=== PATIENT | male | born 1955 | race Caucasian/White ===

== ENCOUNTER 2019-05-11 21:20 | Emergency (ER) | payer MEDICARE, MEDICAID ==
[~2019-05-11] VITALS: Ht 172.7 cm; Wt 63.6 kg
[~2019-05-11 21:20] MED LIST: ASPI-611 PO; LISI40TA4 PO; METO25TA6 PO; OMEP-50 PO
[2019-05-11] MEDS ORDERED: LIDOcaine 1% w/EPI 1:200,000 injection 10mL vial IM ONE (22:05)
[2019-05-11] MEDS ORDERED: TETanus/Pertussis (Acell)/Diphther VAC/PF (Tdap-Adult) 0.5ml syringe IM ONE (22:05)
[2019-05-11] MEDS ORDERED: LIDOcaine 1% W/epiNEPHrine 1:100,000 20ml vial IJ ONE (22:25)
[2019-05-11] MEDS ORDERED: L. R1CAP4 PO (22:37)
[2019-05-11] MEDS ORDERED: CEPH500C5 PO (22:37)
[2019-05-11] MEDS ORDERED: SULF1TAB49 PO (22:37)
[2019-05-11 23:00] VITALS: BP 148/77
== END 2019-05-11 23:01 | disposition home or self-care (01) ==
LOC: ER 21:20
DX: L02.412 Cutaneous abscess of left axilla (principal); I11.0 Hypertensive heart disease with heart failure; I50.9 Heart failure, unspecified; I25.10 Atherosclerotic heart disease of native coronary artery without angina pectoris; J44.9 Chronic obstructive pulmonary disease, unspecified; K21.9 Gastro-esophageal reflux disease without esophagitis; E11.9 Type 2 diabetes mellitus without complications; F12.90 Cannabis use, unspecified, uncomplicated; F15.90 Other stimulant use, unspecified, uncomplicated; Z95.1 Presence of aortocoronary bypass graft; Z98.890 Other specified postprocedural states; Z79.82 Long term (current) use of aspirin; Z79.899 Other long term (current) drug therapy
CPT/HCPCS: 10060; 87070; 87077; 87186; 90471; 99283

== ENCOUNTER 2019-12-20 10:58 | Emergency (ER) | payer MEDICARE, MEDICAID ==
[~2019-12-20] VITALS: Ht 172.7 cm; Wt 63.6 kg
[~2019-12-20 10:58] MED LIST changes: +L. R1CAP4 PO
[2019-12-20] MEDS ORDERED: proparacaine 0.5% ophthalmic drops 15ml EACHEYE ONE (11:05)
[2019-12-20] MEDS ORDERED: ciprofloxacin 0.3% 2.5ml ophthalmic solution RIGHTEYE ONE (11:25)
[2019-12-20 11:58] VITALS: BP 170/113
== END 2019-12-20 11:50 | disposition home or self-care (01) ==
LOC: ER 10:59
DX: T15.01XA Foreign body in cornea, right eye, initial encounter (principal); H57.11 Ocular pain, right eye; I25.10 Atherosclerotic heart disease of native coronary artery without angina pectoris; I11.0 Hypertensive heart disease with heart failure; I50.9 Heart failure, unspecified; J44.9 Chronic obstructive pulmonary disease, unspecified; K21.9 Gastro-esophageal reflux disease without esophagitis; F12.90 Cannabis use, unspecified, uncomplicated; F15.90 Other stimulant use, unspecified, uncomplicated; Z86.19 Personal history of other infectious and parasitic diseases; Z98.890 Other specified postprocedural states; Z72.89 Other problems related to lifestyle; Z60.2 Problems related to living alone; Z79.82 Long term (current) use of aspirin; Z79.4 Long term (current) use of insulin; Z79.899 Other long term (current) drug therapy; X58.XXXA Exposure to other specified factors, initial encounter; Y93.89 Activity, other specified; Y92.89 Other specified places as the place of occurrence of the external cause; Y99.8 Other external cause status
CPT/HCPCS: 65222; 99284

== ENCOUNTER → 2021-06-15 | Emergency (ER) | payer MEDICARE, MEDICAID ==
[~2021-06-15] VITALS: Ht 172.7 cm; Wt 63.0 kg
[~2021-06-15] MED LIST changes: +LISI40TA13 PO; -LISI40TA4 PO; +LOP25T PO; +LOSA25TA41 PO; +METO-411 PO; -METO25TA6 PO
[2021-06-15 22:47] VITALS: BP 191/121
[2021-06-15 23:44] LABS: PARTIAL THROMBOPLASTIN TIME 27 SECONDS (22-32)
[2021-06-15 23:45] LABS: ALANINE AMINOTRANSFERASE 198 U/L (12-78); ALBUMIN 3.2 G/DL (3.4-5.0); ALBUMIN/GLOBULIN RATIO 0.7 (1.1-1.5); ALKALINE PHOSPHATASE 86 IU/L (46-116); ANION GAP 8 (8-16); ASPARTATE AMINO TRANSFERASE 136 U/L (10-37); BILIRUBIN,TOTAL 0.7 MG/DL (0.1-1.0); BLOOD UREA NITROGEN 14 MG/DL (7-18); BUN/CREATININE RATIO 10.5 (5.4-32.0); CALCIUM 8.7 MG/DL (8.5-10.1); CHLORIDE 104 MMOL/L (99-107); CREATININE 1.33 MG/DL (0.60-1.10); GLUCOSE 99 MG/DL (70-104); SODIUM 142 MMOL/L (135-145); TOTAL CARBON DIOXIDE 29.6 MMOL/L (24-32); TOTAL PROTEIN 7.5 G/DL (6.4-8.2); eGFR 53 ML/MIN
[2021-06-15 23:47] LABS: BASOPHILS # (AUTO) 0.1 X10'3 (0-0.2); BASOPHILS % (AUTO) 1.1 % (0-1); EOSINOPHILS # (AUTO) 0.2 X10'3 (0-0.9); LYMPHOCYTES # (AUTO) 3.4 X10'3 (1.1-4.8); LYMPHOCYTES % (AUTO) 31.7 % (21-51); MEAN CORPUSCULAR HEMOGLOBIN 32.3 PG (27.0-31.0); MEAN CORPUSCULAR HGB CONC 34.9 g/dL (33.0-36.5); MEAN CORPUSCULAR VOLUME 92.6 FL (78-98); MEAN PLATELET VOLUME 8.8 FL (7.4-10.4); MONOCYTES # (AUTO) 1.2 X10'3 (0-0.9); MONOCYTES % (AUTO) 11.2 % (2-12); NEUTROPHILS # (AUTO) 5.8 X10'3 (1.8-7.7); PLATELET COUNT 331 X10'3 (140-440); RED BLOOD COUNT 4.64 X10'6 (4.70-6.10); WHITE BLOOD COUNT 10.7 X10'3 (4.5-11.0)
[2021-06-15 23:48] LABS: TROPONIN I 0.06 NG/ML (0.0-0.05)
[2021-06-16 01:14] LABS: TOTAL CELLS COUNTED 100
[2021-06-16 01:15] LABS: PLATELET ESTIMATE NORMAL
--- NOTE | 2021-06-16 03:45 | NUR ---
PATIENT LEFT THE ED BEFORE TREATMENT COULD BE COMPLETED. CALLED HIM AND TOLD HIM TO RETURN TO THE ED. HIS MOTHER SAID SHE WOULD MAKE SURE HE RETURNS.
== END | disposition left against medical advice (07) ==
LOC: ER 22:26
DX: R20.0 Anesthesia of skin (principal); Z53.21 Procedure and treatment not carried out due to patient leaving prior to being seen by health care provider
CPT/HCPCS: 36415; 70450; 71045; 80053; 84484; 85007; 85025; 85610; 85730; 93005

== ENCOUNTER 2021-06-16 09:55 | Emergency (ER) | payer MEDICARE, MEDICAID ==
[~2021-06-16] VITALS: Ht 172.7 cm; Wt 63.0 kg
[~2021-06-16 09:55] MED LIST changes: -LOSA25TA41 PO; -METO-411 PO
[2021-06-16 10:13] VITALS: BP 209/126
[2021-06-16 11:19] LABS: BASOPHILS # (AUTO) 0.1 X10'3 (0-0.2); BASOPHILS % (AUTO) 1.7 % (0-1); EOSINOPHILS # (AUTO) 0.2 X10'3 (0-0.9); EOSINOPHILS % (AUTO) 2.8 % (0-6); HEMATOCRIT 45.2 % (42.0-52.0); HEMOGLOBIN 15.5 g/dl (14.0-17.9); LYMPHOCYTES # (AUTO) 2.4 X10'3 (1.1-4.8); LYMPHOCYTES % (AUTO) 29.1 % (21-51); MEAN CORPUSCULAR HEMOGLOBIN 31.9 PG (27.0-31.0); MEAN CORPUSCULAR HGB CONC 34.3 g/dL (33.0-36.5); MEAN CORPUSCULAR VOLUME 93.1 FL (78-98); MEAN PLATELET VOLUME 8.6 FL (7.4-10.4); MONOCYTES # (AUTO) 0.9 X10'3 (0-0.9); MONOCYTES % (AUTO) 10.8 % (2-12); NEUTROPHILS # (AUTO) 4.6 X10'3 (1.8-7.7); NEUTROPHILS % (AUTO) 55.6 % (42-75); PLATELET COUNT 310 X10'3 (140-440); RED BLOOD COUNT 4.86 X10'6 (4.70-6.10); RED CELL DISTRIBUTION WIDTH 13.2 % (11.5-14.5); WHITE BLOOD COUNT 8.3 X10'3 (4.5-11.0)
[2021-06-16 11:24] LABS: PARTIAL THROMBOPLASTIN TIME 24 SECONDS (22-32)
[2021-06-16 11:26] LABS: ALANINE AMINOTRANSFERASE 213 U/L (12-78); ALBUMIN 3.4 G/DL (3.4-5.0); ALBUMIN/GLOBULIN RATIO 0.7 (1.1-1.5); ALKALINE PHOSPHATASE 92 IU/L (46-116); ANION GAP 9 (8-16); ASPARTATE AMINO TRANSFERASE 169 U/L (10-37); BILIRUBIN,TOTAL 0.5 MG/DL (0.1-1.0); BLOOD UREA NITROGEN 13 MG/DL (7-18); BUN/CREATININE RATIO 11.1 (5.4-32.0); CALCIUM 8.7 MG/DL (8.5-10.1); CHLORIDE 103 MMOL/L (99-107); CREATININE 1.17 MG/DL (0.60-1.10); GLUCOSE 92 MG/DL (70-104); POTASSIUM 3.3 MMOL/L (3.5-5.1); SODIUM 141 MMOL/L (135-145); TOTAL CARBON DIOXIDE 28.6 MMOL/L (24-32); TOTAL PROTEIN 8.1 G/DL (6.4-8.2); eGFR 62 ML/MIN
[2021-06-16 11:31] LABS: TROPONIN I < 0.04 NG/ML (0.0-0.05)
== END 2021-06-16 17:32 | disposition left against medical advice (07) ==
LOC: ER 09:56
DX: R20.0 Anesthesia of skin (principal); R53.1 Weakness; I25.10 Atherosclerotic heart disease of native coronary artery without angina pectoris; I11.0 Hypertensive heart disease with heart failure; I50.9 Heart failure, unspecified; J44.9 Chronic obstructive pulmonary disease, unspecified; F12.90 Cannabis use, unspecified, uncomplicated; F15.90 Other stimulant use, unspecified, uncomplicated; K21.9 Gastro-esophageal reflux disease without esophagitis; Z86.19 Personal history of other infectious and parasitic diseases; Z95.5 Presence of coronary angioplasty implant and graft; Z79.82 Long term (current) use of aspirin; Z79.899 Other long term (current) drug therapy
CPT/HCPCS: 36415; 70450; 71045; 80053; 84484; 85025; 85610; 85730; 93005; 99285

== ENCOUNTER 2021-06-22 15:15 | Inpatient (IN) | payer MEDICARE, MEDICAID ==
[~2021-06-22] VITALS: Ht 170.2 cm; Wt 62.0 kg
[2021-06-22] MEDS ORDERED: aspirin 81mg tab.chew PO ONE (17:10)
[2021-06-22 17:17] LABS: BASOPHILS # (AUTO) 0.1 X10'3 (0-0.2); BASOPHILS % (AUTO) 1.4 % (0-1); EOSINOPHILS # (AUTO) 0.2 X10'3 (0-0.9); EOSINOPHILS % (AUTO) 2.2 % (0-6); HEMATOCRIT 44.9 % (42.0-52.0); HEMOGLOBIN 15.8 g/dl (14.0-17.9); LYMPHOCYTES # (AUTO) 2.5 X10'3 (1.1-4.8); LYMPHOCYTES % (AUTO) 27.1 % (21-51); MEAN CORPUSCULAR HEMOGLOBIN 32.4 PG (27.0-31.0); MEAN CORPUSCULAR HGB CONC 35.2 g/dL (33.0-36.5); MEAN CORPUSCULAR VOLUME 91.9 FL (78-98); MEAN PLATELET VOLUME 8.3 FL (7.4-10.4); MONOCYTES % (AUTO) 11.2 % (2-12); NEUTROPHILS # (AUTO) 5.3 X10'3 (1.8-7.7); NEUTROPHILS % (AUTO) 58.1 % (42-75); PLATELET COUNT 342 X10'3 (140-440); RED BLOOD COUNT 4.89 X10'6 (4.70-6.10); RED CELL DISTRIBUTION WIDTH 13.2 % (11.5-14.5); WHITE BLOOD COUNT 9.1 X10'3 (4.5-11.0)
[2021-06-22 17:32] LABS: ALANINE AMINOTRANSFERASE 164 U/L (12-78); ALBUMIN 3.2 G/DL (3.4-5.0); ALBUMIN/GLOBULIN RATIO 0.7 (1.1-1.5); ALKALINE PHOSPHATASE 79 IU/L (46-116); ANION GAP 8 (8-16); ASPARTATE AMINO TRANSFERASE 140 U/L (10-37); BILIRUBIN,TOTAL 1.4 MG/DL (0.1-1.0); BLOOD UREA NITROGEN 11 MG/DL (7-18); BUN/CREATININE RATIO 8.3 (5.4-32.0); CALCIUM 8.4 MG/DL (8.5-10.1); CHLORIDE 103 MMOL/L (99-107); CREATININE 1.33 MG/DL (0.60-1.10); GLUCOSE 104 MG/DL (70-104); POTASSIUM 3.6 MMOL/L (3.5-5.1); SODIUM 141 MMOL/L (135-145); TOTAL CARBON DIOXIDE 29.7 MMOL/L (24-32); TOTAL PROTEIN 7.8 G/DL (6.4-8.2); eGFR 53 ML/MIN
[2021-06-22] MEDS ORDERED: iohexol 350MG/ML 100ml bottle IV ONE (17:51)
[2021-06-22 18:44] LABS: ETHANOL < 0.010 GM/DL (0.0-0.010)
[2021-06-22] MEDS ORDERED: potassium Cl 20 mEq SR tablet PO PRN ×2 (19:55)
[2021-06-22] MEDS ORDERED: ondansetron/PF 4mg/2ml inj IV PRN (19:55)
[2021-06-22] MEDS ORDERED: mag hydrox/Alum hydrox/simeth 30ml oral suspension PO PRN (19:55)
[2021-06-22] MEDS ORDERED: acetaminophen 325mg tablet PO PRN (19:55)
[2021-06-22] MEDS ORDERED: potassium Cl 40MEQ/1/2NS 520ml 520 ML IV PRN ×2 (19:55)
[2021-06-22] MEDS ORDERED: magnesium hydroxide 30ml (MOM) UD suspension PO PRN (19:55)
[2021-06-22] MEDS ORDERED: PERFLUTREN PROTEIN-A MICROSPHR (Optison) 0.22 MG/ML 3ML VIAL IV ONE (19:55)
[2021-06-22] MEDS: K and/or MAG REPLACEMENT MC SCH (20:00)
[2021-06-22 20:18] LABS: HEMOGLOBIN A1C 6.1 % (4.5-6.2)
--- NOTE | 2021-06-22 20:30 | NUR ---
pt was not given optison not availABLE IN PHARMACY AT THIS TIME
--- NOTE | 2021-06-22 20:48 | NUR ---
assumed care of pt without 1700 meds given , iv not started started , vs last taken 5hours ago , no medical hx assessment done . oriented patient to room plan of care discussed and aspirin given . pt awaitng hospital bed at the moment
[2021-06-22] MEDS: docusate sod 100mg capsule PO SCH (21:05)
[2021-06-22] MEDS: heparin, porcine 5000 units/ml vial SQ SCH (21:06)
[2021-06-22] MEDS ORDERED: METO-411 PO (21:38)
--- NOTE | 2021-06-22 23:52 | NUR ---
PAGGED DR LANE ABOUT PT BLOOD PRESSURE . HE STATED TO GIVE PT HIS METROPROAL NOW
[2021-06-22] MEDS ORDERED: LOSA25TA41 PO (23:57)
--- NOTE | 2021-06-23 00:09 | NUR ---
DR LANE CALLED WILL GIVE PT HIS BP MEDS JUSTIN
[2021-06-23] MEDS: losartan 25mg tablet PO SCH ×2 (01:02→08:29)
[2021-06-23 02:03] LABS: UA COLLECTION TYPE NON-SPECIFIED
[2021-06-23 02:04] LABS: CLARITY,URINE CLEAR (Clear); COLOR,URINE DARK YELLOW (Yellow); GLUCOSE, URINE NEGATIVE (Neg); KETONES,URINE NEGATIVE (Neg); OCCULT BLOOD,URINE NEGATIVE (Neg); PROTEIN,URINE TRACE mg/dl (Neg); URINE AMPHETAMINE SCREEN POSITIVE (Neg); URINE BARBITUATE SCREEN NEGATIVE (Neg); URINE BENZODIAZEPINES SCREEN NEGATIVE (Neg); URINE CANNABINOID SCREEN POSITIVE (Neg); URINE COCAINE SCREEN NEGATIVE (Neg); URINE METHADONE SCREEN NEGATIVE (Neg); URINE OPIATE SCREEN NEGATIVE (Neg); URINE PHENCYCLIDINE SCREEN NEGATIVE (Neg)
[2021-06-23 02:05] LABS: LEUKOCYTE ESTERASE ,URINE NEGATIVE (Neg); NITRITES, URINE NEGATIVE (Neg)
[2021-06-23 02:07] LABS: MUCUS STRANDS NONE SEEN /LPF (Neg); SQUAMOUS EPITHELIAL CELL,UR FEW /LPF (FEW)
[2021-06-23 02:08] LABS: BACTERIA,URINE FEW /HPF (Neg); RBC,URINE 0-2 /HPF (0-2); WBC,URINE 0-4 /HPF (0-4)
[2021-06-23 04:15] VITALS: BP 205/110
--- NOTE | 2021-06-23 04:15 | NUR ---
Notified Elmer of 205 systolic BP - 2.5 mg Norvasc PO once - ordered & administered. WIll continue to monitor.
[2021-06-23] MEDS ORDERED: amLODIPine 2.5mg tablet PO ONE (04:25)
[2021-06-23 05:25] LABS: ALANINE AMINOTRANSFERASE 142 U/L (12-78); ALBUMIN/GLOBULIN RATIO 0.7 (1.1-1.5); ALKALINE PHOSPHATASE 70 IU/L (46-116); ANION GAP 9 (8-16); ASPARTATE AMINO TRANSFERASE 112 U/L (10-37); BILIRUBIN,TOTAL 0.9 MG/DL (0.1-1.0); BLOOD UREA NITROGEN 13 MG/DL (7-18); BUN/CREATININE RATIO 9.8 (5.4-32.0); CALCIUM 8.5 MG/DL (8.5-10.1); CHLORIDE 103 MMOL/L (99-107); CREATININE 1.33 MG/DL (0.60-1.10); GLUCOSE 104 MG/DL (70-104); POTASSIUM 3.6 MMOL/L (3.5-5.1); SODIUM 140 MMOL/L (135-145); TOTAL CARBON DIOXIDE 28.2 MMOL/L (24-32); TOTAL PROTEIN 7.1 G/DL (6.4-8.2); eGFR 53 ML/MIN
[2021-06-23 05:33] LABS: CHOL/HDL RATIO 4.4 (0.00-4.99); CHOLESTEROL 136 MG/DL (0-200); HDL CHOLESTEROL 31 MG/DL (35-60); LDL CHOLESTEROL 86 MG/DL (50-100); TRIGLYCERIDES 126 MG/DL (20-135)
[2021-06-23 06:12] LABS: BASOPHILS # (AUTO) 0.1 X10'3 (0-0.2); BASOPHILS % (AUTO) 1.1 % (0-1); EOSINOPHILS # (AUTO) 0.3 X10'3 (0-0.9); EOSINOPHILS % (AUTO) 3.2 % (0-6); HEMATOCRIT 44.6 % (42.0-52.0); HEMOGLOBIN 15.5 g/dl (14.0-17.9); LYMPHOCYTES # (AUTO) 2.9 X10'3 (1.1-4.8); LYMPHOCYTES % (AUTO) 37.1 % (21-51); MEAN CORPUSCULAR HEMOGLOBIN 32.3 PG (27.0-31.0); MEAN CORPUSCULAR HGB CONC 34.8 g/dL (33.0-36.5); MEAN CORPUSCULAR VOLUME 92.7 FL (78-98); MEAN PLATELET VOLUME 9.1 FL (7.4-10.4); MONOCYTES # (AUTO) 0.8 X10'3 (0-0.9); MONOCYTES % (AUTO) 10.7 % (2-12); NEUTROPHILS # (AUTO) 3.8 X10'3 (1.8-7.7); NEUTROPHILS % (AUTO) 47.9 % (42-75); PLATELET COUNT 330 X10'3 (140-440); RED BLOOD COUNT 4.81 X10'6 (4.70-6.10); RED CELL DISTRIBUTION WIDTH 13.2 % (11.5-14.5); WHITE BLOOD COUNT 7.9 X10'3 (4.5-11.0)
--- NOTE | 2021-06-23 06:28 | NUR ---
Problems reprioritized. Patient report given, questions answered & plan of care reviewed with CHALO Amin.
--- NOTE | 2021-06-23 06:46 | NUR ---
Patient in room PCU 3019. I have received report from Amaris Hernandez and had the opportunity to ask questions and assume patient care. Pt sitting up at the edge of the bed. pt endorses mild SOB. spo2 98% on room air. therapeutic deep breathing encouraged, pt HOB elevated to high fowlers, effective in relieving SOB. pt awaiting breakfast. no s/sx acute distress.
[2021-06-23 07:00] VITALS: BP 196/114
[2021-06-23] MEDS ORDERED: non-formulary drug (Aspirin (Aspir 81) 1 TABLET) PO SCH (08:00)
[2021-06-23] MEDS: K and/or MAG REPLACEMENT MC SCH ×2 (08:00→20:00)
[2021-06-23] MEDS ORDERED: non-formulary drug (Lisinopril* 1 TAB) PO SCH (08:00)
[2021-06-23] MEDS: aspirin 81mg, enteric-coated 1 TAB TABLET.DR PO SCH (08:28)
[2021-06-23] MEDS: docusate sod 100mg capsule PO SCH ×2 (08:28→19:21)
[2021-06-23] MEDS: pantoprazole 40mg Tablet.DR PO SCH (08:28)
[2021-06-23] MEDS: heparin, porcine 5000 units/ml vial SQ SCH ×2 (08:28→19:21)
[2021-06-23] MEDS: metoprolol succinate 25mg (24-HOUR) SR. Tablet PO SCH ×2 (08:29)
--- NOTE | 2021-06-23 08:42 | NUR ---
Pt hypertensive. Dr. Lange Paged. "RE: Brian Harrell: [phone]: BP 196/114. received routine: 100mg metoprolol, 25mg cozaar. would you like something prn? 2.5 norvasc did not help last night. -Eloisa #[phone] "
--- NOTE | 2021-06-23 09:20 | NUR ---
Dr. Lange to floor and addressed HTN "after MRI when we know that he doesnt have a stroke, then we will bring the blood pressure down, not before. "
[2021-06-23 11:00] VITALS: BP 180/98
--- NOTE | 2021-06-23 14:26 | NUR ---
[facility] called for Dr. Lange. Nazario paged. "PAGER ID: [phone] MESSAGE: RE: Brian Olivier: [phone]: JUAN JOSÉ: please call Dr. Vann at [facility] regarding head MRI . -bon #[phone]"
[2021-06-23 15:00] VITALS: BP 167/94
[2021-06-23] MEDS ORDERED: amLODIPine 5mg tablet PO ONE (17:10)
[2021-06-23 18:00] VITALS: BP 200/104
--- NOTE | 2021-06-23 18:00 | NUR ---
Patient in room PCU 3019. I have received report from ANTIONE ISABEL and had the opportunity to ask questions and assume patient care.
--- NOTE | 2021-06-23 18:30 | NUR ---
Problems reprioritized. Patient report given, questions answered & plan of care reviewed with Patti ISABEL. Pt alert, eating dinner, visiting with visitior. no s/sx acute distress
[2021-06-23] MEDS: hydrALAZINE 20mg/ml inj. IV PRN (19:21)
[2021-06-23 22:00] VITALS: BP 148/78
[2021-06-24 02:00] VITALS: BP 178/100
[2021-06-24] MEDS: hydrALAZINE 20mg/ml inj. IV PRN (05:30)
[2021-06-24 06:20] LABS: BASOPHILS # (AUTO) 0.1 X10'3 (0-0.2); BASOPHILS % (AUTO) 1.2 % (0-1); EOSINOPHILS # (AUTO) 0.2 X10'3 (0-0.9); EOSINOPHILS % (AUTO) 2.8 % (0-6); HEMATOCRIT 45.3 % (42.0-52.0); HEMOGLOBIN 15.6 g/dl (14.0-17.9); LYMPHOCYTES # (AUTO) 2.1 X10'3 (1.1-4.8); LYMPHOCYTES % (AUTO) 27.5 % (21-51); MEAN CORPUSCULAR HEMOGLOBIN 32.4 PG (27.0-31.0); MEAN CORPUSCULAR HGB CONC 34.5 g/dL (33.0-36.5); MEAN CORPUSCULAR VOLUME 93.9 FL (78-98); MEAN PLATELET VOLUME 8.9 FL (7.4-10.4); MONOCYTES # (AUTO) 0.8 X10'3 (0-0.9); MONOCYTES % (AUTO) 10.1 % (2-12); NEUTROPHILS # (AUTO) 4.5 X10'3 (1.8-7.7); NEUTROPHILS % (AUTO) 58.4 % (42-75); PLATELET COUNT 311 X10'3 (140-440); RED BLOOD COUNT 4.82 X10'6 (4.70-6.10); RED CELL DISTRIBUTION WIDTH 13.4 % (11.5-14.5); WHITE BLOOD COUNT 7.7 X10'3 (4.5-11.0)
--- NOTE | 2021-06-24 06:28 | NUR ---
Problems reprioritized. Patient report given, questions answered & plan of care reviewed with ANTIONE ISABEL.
--- NOTE | 2021-06-24 06:29 | NUR ---
Patient in room PCU 3019. I have received report from Patti ISABEL and had the opportunity to ask questions and assume patient care.
[2021-06-24 06:31] VITALS: BP 163/85
[2021-06-24 06:31] LABS: ALANINE AMINOTRANSFERASE 138 U/L (12-78); ALBUMIN 2.8 G/DL (3.4-5.0); ALBUMIN/GLOBULIN RATIO 0.7 (1.1-1.5); ALKALINE PHOSPHATASE 71 IU/L (46-116); ANION GAP 5 (8-16); ASPARTATE AMINO TRANSFERASE 123 U/L (10-37); BLOOD UREA NITROGEN 19 MG/DL (7-18); BUN/CREATININE RATIO 16.5 (5.4-32.0); CALCIUM 8.7 MG/DL (8.5-10.1); CHLORIDE 103 MMOL/L (99-107); CREATININE 1.15 MG/DL (0.60-1.10); GLUCOSE 100 MG/DL (70-104); POTASSIUM 3.8 MMOL/L (3.5-5.1); SODIUM 133 MMOL/L (135-145); TOTAL CARBON DIOXIDE 24.8 MMOL/L (24-32); eGFR 63 ML/MIN
--- NOTE | 2021-06-24 06:41 | NUR ---
stroke like symptoms 0631: pt stated sudden right side tingling, numbness in mouth, tingle to right UE/LE, mild slur. VS checked, stable, [facility] Imelda ISABEL notified, Dr. Payne called and acknowledged agreement to call stroke team. stroke team paged. continue with neurochecks Q5/prn and VS. this nurse at bedside. Addendum: 06/24/21 at 0658 by Eloisa Delong RN symptoms improving, pt endorses tingling and numbness to right lips, pt with tiny slur (improved), and strength normal in legs. Stroke nurse called, stated she is on the way. stroke neuro consult computer station currently being retrieved from ICU by additional staff. pt alert and verbal. endorses some SOB. tachypnea present. SP02 97%. therapeutic breathing incorporated.
[2021-06-24 06:43] VITALS: BP 156/83
[2021-06-24 06:50] VITALS: BP 145/100
--- NOTE | 2021-06-24 07:00 | NUR ---
Responded to stroke alert. pt has been having intermittent right side numbness on and off since awaking at 0630. He currently has right face only tingling. He is on asa. b/p has been treated, right carotid disease per ultrasound. SOC contacted for neuro consult
--- NOTE | 2021-06-24 07:12 | NUR ---
Stroke nurse Carolina arrived around 0700. pt continues to endorse feelings of improvement, however, tingling to right side lips/mouth continues. pt alert and neuro checks mostly unchanged. pt endorses fleeting headache and mild nausea. Addendum: 06/24/21 at 0715 by Eloisa Delong RN neuro consult to be completed via [employer].
--- NOTE | 2021-06-24 07:55 | NUR ---
neeta doc completing consult
[2021-06-24] MEDS ORDERED: amLODIPine 5mg tablet PO SCH (08:00)
[2021-06-24] MEDS: K and/or MAG REPLACEMENT MC SCH (08:00)
--- NOTE | 2021-06-24 08:00 | NUR ---
Dr. Reese exams pt via telemed. Recommends adding Plavix for dual antiplatelet therapy, allow for permissive hypertension, add statin max dose. Seek vascular consultation.
--- NOTE | 2021-06-24 08:00 | NUR ---
Dr. Lenard Reese neurologist recommendations: lipitor 80 mg daily, ASA/plavix dual therapy x 3 weeks, vas. surgeon consult for carotid, permissive hypertension x 2 weeks, d/c hydralazine. hospitalist to be notified of Dr. Reese's recommendations.
--- NOTE | 2021-06-24 08:19 | NUR ---
Dr. Chaudhary paged regarding neuro consult recommendations. "PAGER ID: [phone] MESSAGE: RE: Brian Olivier: [phone]: stroke alert called at 0645. neuro consult completed. Dr. Reese (neuro doc's) recommendations in my note. Please let me know if i can carry out these orders/rec's. -Eloisa #[id number] PCU"
[2021-06-24] MEDS: aspirin 81mg, enteric-coated 1 TAB TABLET.DR PO SCH (09:16)
[2021-06-24] MEDS: metoprolol succinate 25mg (24-HOUR) SR. Tablet PO SCH (09:16)
[2021-06-24] MEDS: losartan 25mg tablet PO SCH (09:16)
[2021-06-24] MEDS: heparin, porcine 5000 units/ml vial SQ SCH (09:17)
[2021-06-24] MEDS: pantoprazole 40mg Tablet.DR PO SCH (09:22)
[2021-06-24] MEDS: docusate sod 100mg capsule PO SCH (09:22)
--- NOTE | 2021-06-24 09:59 | NUR ---
Dr. Chaudhary to [facility] floor. Dr. Chaudhary informed this nurse that this patient is not on her list. Hospitalist list posted in nurses station listed Dr. Chaudhary in error. Dr. Leon hospitalist for this pt this am. Dr. Leon Paged. Dr. Leon immediately called back. new order for duoneb Q1oulxv, plavix stat, US abd, d/c hydralazine for permissive HTN. Dr. Leon to call surgeon for consult on carotid, and wait on lipitor until after US of ABD due to increased LFTs.
[2021-06-24] MEDS ORDERED: clopidogrel 75mg tablet PO STA (10:04)
--- NOTE | 2021-06-24 10:17 | NUR ---
RT paged and ultrasound paged related to new orders.
[2021-06-24 11:00] VITALS: BP 156/80
--- NOTE | 2021-06-24 12:06 | NUR ---
US in process
[2021-06-24] MEDS ORDERED: ipratropium/albuterol 3ml nebule NEB PRN (13:00)
[2021-06-24 15:00] VITALS: BP 151/87
--- NOTE | 2021-06-24 15:08 | NUR ---
two mins of parathesia to right side. Dr. Leon paged. "PAGER ID: [phone] MESSAGE: [phone]: Brian Olivier: pt with right sided numbness/tingling including lips , UE/LE x 2 mins then resolved. -Eloisa #[id number]"
--- NOTE | 2021-06-24 15:25 | NUR ---
@ 1040: fleeting right sided parathesia. Dr. Leon Paged. ""feels like that pins and needles in the right side of my lips. my leg and arm [right side] felt tingly too, but now its fine. it went away, just my lips are a little tingly. " Dr. Leon immediately called back, acknowledged notification. instructed this nurse to continue to document the symptoms in notes. Dr. Leon stated she contacted Dr. Caban and no surgical intervention for carotid indicated at this time.
--- NOTE | 2021-06-24 17:50 | NUR ---
Pt upset about his dog not being let into hospital and left AMA. nurse convinced pt to let her remove IV and signed AMA form before bolting for the door despite education. "if i im goign to at home". Dr. Leon notified.
[2021-06-24] MEDS ORDERED: methylPREDNISolone sod succ 125mg/2ml vial IV SCH (20:00)
[2021-06-25] MEDS ORDERED: clopidogrel 75mg tablet PO SCH (08:00)
== END 2021-06-24 17:40 | disposition left against medical advice (07) | DRG 69 ==
LOC: ER 15:15 → ED HOLD 20:00 → PCU 3S 06-23 03:33
PROVIDERS: ADMIT Internal Medicine; ATTEND Family Medicine
PROC: B3251ZZ Computerized Tomography (CT Scan) of Bilateral Common Carotid Arteries using Low Osmolar Contrast (ICD-10-PCS; principal; 2021-06-22)
PROC: B32G1ZZ Computerized Tomography (CT Scan) of Bilateral Vertebral Arteries using Low Osmolar Contrast (ICD-10-PCS; 2021-06-22)
PROC: B32R1ZZ Computerized Tomography (CT Scan) of Intracranial Arteries using Low Osmolar Contrast (ICD-10-PCS; 2021-06-22)
PROC: B3281ZZ Computerized Tomography (CT Scan) of Bilateral Internal Carotid Arteries using Low Osmolar Contrast (ICD-10-PCS; 2021-06-22)
DX: G45.9 Transient cerebral ischemic attack, unspecified (principal); N17.9 Acute kidney failure, unspecified; I25.10 Atherosclerotic heart disease of native coronary artery without angina pectoris; I11.0 Hypertensive heart disease with heart failure; I50.9 Heart failure, unspecified; F15.10 Other stimulant abuse, uncomplicated; K21.9 Gastro-esophageal reflux disease without esophagitis; B19.20 Unspecified viral hepatitis C without hepatic coma; R79.89 Other specified abnormal findings of blood chemistry; Z20.822 Contact with and (suspected) exposure to COVID-19; Z53.29 Procedure and treatment not carried out because of patient's decision for other reasons; F17.210 Nicotine dependence, cigarettes, uncomplicated; Z95.1 Presence of aortocoronary bypass graft; Z82.49 Family history of ischemic heart disease and other diseases of the circulatory system; Z83.3 Family history of diabetes mellitus; Z79.82 Long term (current) use of aspirin; Z79.899 Other long term (current) drug therapy; Z71.6 Tobacco abuse counseling; Z71.51 Drug abuse counseling and surveillance of drug abuser
CPT/HCPCS: 36415; 70496; 70498; 70551; 71045; 76700; 80053; 80061; 80305; 80320; 81001; 83036; 83880; 84484; 85025; 87081; 87635; 93005; 93306; 94640; 94760; 99285; G0378; J0360; J1644; Q9967

== ENCOUNTER 2022-06-04 09:23 | Emergency (ER) | payer MEDICARE, MEDICAID ==
[~2022-06-04] VITALS: Ht 172.7 cm; Wt 65.9 kg
[~2022-06-04 09:23] MED LIST changes: -L. R1CAP4 PO; -LISI40TA13 PO; -LOP25T PO; +LOSA25TA41 PO; +METO-411 PO; -OMEP-50 PO; +OMEP20CA16 PO
[2022-06-04 09:31] VITALS: BP 233/129
[2022-06-04] MEDS ORDERED: bacitracin 15gm ointment TP ONE (10:45)
[2022-06-04] MEDS ORDERED: TETanus/Pertussis (Acell)/Diphther VAC/PF (Tdap-Adult) 0.5ml syringe IMVAC ONE (10:45)
[2022-06-04] MEDS ORDERED: CEPH-585 PO (10:47)
== END 2022-06-04 11:17 | disposition home or self-care (01) ==
LOC: ER 09:24
DX: L03.011 Cellulitis of right finger (principal); M79.644 Pain in right finger(s); I11.0 Hypertensive heart disease with heart failure; I50.9 Heart failure, unspecified; J44.9 Chronic obstructive pulmonary disease, unspecified; K21.9 Gastro-esophageal reflux disease without esophagitis; E11.9 Type 2 diabetes mellitus without complications; F15.20 Other stimulant dependence, uncomplicated; F12.90 Cannabis use, unspecified, uncomplicated
CPT/HCPCS: 73140; 99283

== ENCOUNTER 2022-07-24 15:12 | Emergency (ER) | payer MEDICARE, MEDICAID ==
[~2022-07-24] VITALS: Ht 172.7 cm; Wt 65.9 kg
[~2022-07-24 15:12] MED LIST changes: +CEPH-585 PO
[2022-07-24 15:25] VITALS: BP 157/94
[2022-07-24 15:35] LABS: BASOPHILS # (AUTO) 0.1 X10'3 (0-0.2); BASOPHILS % (AUTO) 1.2 % (0-1); EOSINOPHILS # (AUTO) 0.2 X10'3 (0-0.9); EOSINOPHILS % (AUTO) 1.8 % (0-6); LYMPHOCYTES # (AUTO) 2.6 X10'3 (1.1-4.8); LYMPHOCYTES % (AUTO) 23.4 % (21-51); MEAN CORPUSCULAR HEMOGLOBIN 31.8 PG (27.0-31.0); MEAN CORPUSCULAR HGB CONC 33.3 g/dL (33.0-36.5); MEAN CORPUSCULAR VOLUME 95.4 FL (78-98); MEAN PLATELET VOLUME 8.1 FL (7.4-10.4); MONOCYTES % (AUTO) 8.6 % (2-12); NEUTROPHILS # (AUTO) 7.4 X10'3 (1.8-7.7); PLATELET COUNT 302 X10'3 (140-440); RED BLOOD COUNT 4.71 X10'6 (4.70-6.10); RED CELL DISTRIBUTION WIDTH 13.5 % (11.5-14.5); WHITE BLOOD COUNT 11.3 X10'3 (4.5-11.0)
[2022-07-24 15:45] LABS: ALANINE AMINOTRANSFERASE 44 U/L (12-78); ALBUMIN 3.7 G/DL (3.4-5.0); ALBUMIN/GLOBULIN RATIO 0.8 (1.1-1.5); ALKALINE PHOSPHATASE 77 IU/L (46-116); ANION GAP 9 (8-16); ASPARTATE AMINO TRANSFERASE 47 U/L (10-37); BILIRUBIN,TOTAL 0.7 MG/DL (0.1-1.0); BLOOD UREA NITROGEN 17 MG/DL (7-18); CHLORIDE 103 MMOL/L (99-107); CREATININE 1.31 MG/DL (0.60-1.10); GLUCOSE 98 MG/DL (70-104); POTASSIUM 3.8 MMOL/L (3.5-5.1); SODIUM 139 MMOL/L (135-145); TOTAL CARBON DIOXIDE 27.3 MMOL/L (24-32); TOTAL PROTEIN 8.2 G/DL (6.4-8.2); eGFR 54 ML/MIN
[2022-07-24 15:53] LABS: MAGNESIUM 1.4 MG/DL (1.5-2.4)
== END 2022-07-24 18:25 | disposition left against medical advice (07) ==
LOC: ER 15:12
DX: R06.02 Shortness of breath (principal); R07.89 Other chest pain; Z53.21 Procedure and treatment not carried out due to patient leaving prior to being seen by health care provider
CPT/HCPCS: 36415; 71045; 80053; 83735; 83880; 84484; 85025; 93005

== ENCOUNTER 2023-10-30 09:03 | Emergency (ER) | payer MEDICARE, MEDICAID ==
[~2023-10-30] VITALS: Ht 172.7 cm; Wt 71.6 kg
[~2023-10-30 09:03] MED LIST changes: -CEPH-585 PO
[2023-10-30 09:12] VITALS: TEMP 98.8
[2023-10-30] MEDS ORDERED: OLME5TAB32 PO (09:38)
[2023-10-30] MEDS ORDERED: AMLO2.5T2 PO (09:38)
[2023-10-30 10:06] VITALS: BP 196/123; PULSE 73; RESP 18; O2SAT 92
[2023-10-30] MEDS: hyDRALAzine 10mg tablet PO SCH (10:10)
== END 2023-10-30 10:18 | disposition home or self-care (01) ==
LOC: ER 09:03
DX: I11.0 Hypertensive heart disease with heart failure (principal); I50.9 Heart failure, unspecified; Z76.0 Encounter for issue of repeat prescription; I25.10 Atherosclerotic heart disease of native coronary artery without angina pectoris; K21.9 Gastro-esophageal reflux disease without esophagitis; J44.9 Chronic obstructive pulmonary disease, unspecified; Z98.890 Other specified postprocedural states
CPT/HCPCS: 99281

== ENCOUNTER 2024-01-18 14:59 | Emergency (ER) | payer MEDICARE, MEDICAID ==
[~2024-01-18] VITALS: Ht 172.7 cm; Wt 68.9 kg
[2024-01-18 15:03] VITALS: BP 163/93; PULSE 104; RESP 16; TEMP 98.5; O2SAT 96
[2024-01-18] MEDS ORDERED: CEPH500C3 PO (15:38)
[2024-01-18] MEDS: TETanus/Pertussis (Acell)/Diphther VAC/PF (Tdap-Adult) 0.5ml syringe IMVAC ONE (15:55)
[2024-01-18] MEDS: bacitracin 15gm ointment TP ONE (15:58)
== END 2024-01-18 16:15 | disposition home or self-care (01) ==
LOC: ER 15:00
DX: L03.116 Cellulitis of left lower limb (principal); I11.0 Hypertensive heart disease with heart failure; I50.9 Heart failure, unspecified; J44.9 Chronic obstructive pulmonary disease, unspecified; K21.9 Gastro-esophageal reflux disease without esophagitis; E11.9 Type 2 diabetes mellitus without complications; F12.90 Cannabis use, unspecified, uncomplicated; F15.90 Other stimulant use, unspecified, uncomplicated; Z79.82 Long term (current) use of aspirin; Z79.2 Long term (current) use of antibiotics; Z79.899 Other long term (current) drug therapy
CPT/HCPCS: 90471; 90715; 99283; A6258; A6446; A6449

== ENCOUNTER 2024-10-30 19:33 | Emergency (ER) | payer MEDICARE, MEDICAID ==
[~2024-10-30] VITALS: Ht 172.7 cm; Wt 65.9 kg
[2024-10-30 19:47] VITALS: BP 122/59; PULSE 70; RESP 26; TEMP 98.8; O2SAT 97
[2024-10-30 20:36] LABS: BASOPHILS # (AUTO) 0.1 X10'3 (0-0.2); BASOPHILS % (AUTO) 1.3 % (0-1); EOSINOPHILS # (AUTO) 0.2 X10'3 (0-0.9); EOSINOPHILS % (AUTO) 1.6 % (0-6); HEMATOCRIT 51.1 % (42.0-52.0); HEMOGLOBIN 16.7 g/dl (14.0-17.9); LYMPHOCYTES # (AUTO) 2.7 X10'3 (1.1-4.8); LYMPHOCYTES % (AUTO) 23.6 % (21-51); MEAN CORPUSCULAR HEMOGLOBIN 29.1 PG (27.0-31.0); MEAN CORPUSCULAR HGB CONC 32.8 g/dL (33.0-36.5); MEAN CORPUSCULAR VOLUME 88.7 FL (78-98); MEAN PLATELET VOLUME 8.7 FL (7.4-10.4); MONOCYTES # (AUTO) 1.3 X10'3 (0-0.9); MONOCYTES % (AUTO) 11.5 % (2-12); PLATELET COUNT 470 X10'3 (140-440); RED BLOOD COUNT 5.76 X10'6 (4.70-6.10); RED CELL DISTRIBUTION WIDTH 13.2 % (11.5-14.5); WHITE BLOOD COUNT 11.2 X10'3 (4.5-11.0)
[2024-10-30 20:46] LABS: ALANINE AMINOTRANSFERASE 47 U/L (12-78); ALBUMIN 3.4 G/DL (3.4-5.0); ALBUMIN/GLOBULIN RATIO 0.6 (1.1-1.5); ALKALINE PHOSPHATASE 101 IU/L (46-116); ANION GAP 9 (8-16); ASPARTATE AMINO TRANSFERASE 38 U/L (10-37); BILIRUBIN,TOTAL 0.4 MG/DL (0.1-1.0); BLOOD UREA NITROGEN 17 MG/DL (7-18); BUN/CREATININE RATIO 14.3 (10.0-20.0); CALCIUM 8.9 MG/DL (8.5-10.1); CHLORIDE 101 MMOL/L (99-107); CREATININE 1.19 MG/DL (0.60-1.10); GLUCOSE 125 MG/DL (70-104); SODIUM 140 MMOL/L (135-145); TOTAL CARBON DIOXIDE 30.4 MMOL/L (24-32); TOTAL PROTEIN 8.7 G/DL (6.4-8.2); eCRCL 53 ML/MIN; eGFR 60 ML/MIN
[2024-10-30 20:55] LABS: PRO BRAIN NATRIURETIC PEPTIDE 2444 PG/ML (0-125)
== END 2024-10-30 22:34 | disposition left against medical advice (07) ==
LOC: ER 19:34
DX: R06.02 Shortness of breath (principal); Z53.21 Procedure and treatment not carried out due to patient leaving prior to being seen by health care provider
CPT/HCPCS: 36415; 71045; 80053; 83880; 84484; 85025; 93005

== ENCOUNTER 2025-04-23 11:25 | Outpatient (CLI) | payer MEDICARE, MEDICAID ==
--- NOTE | 2025-04-23 14:53 | VASCULAR REPORT ---
EXAM: [facility] CHIRAG ANKLE/BRACHIAL INDEX CLINICAL HISTORY: Bilateral lower extremity pain Peripheral vascular disease COMPARISON: [facility] VL ARTERIAL on DOS: 04/23/25 TECHNIQUE: Bilateral systolic ankle and brachial pressures are obtained, with ankle pulse volume waveforms and i ndices. 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 : AANNYA JOHNSON, Preliminary Report The above named patient was referred for a PHYSIOLOGIC ARTERIAL DOPPLER EVALUATION. The evaluation includes blood pressures, ankle brachial indices (CHIRAG), and segmental Doppler waveform analysis at rest and post exercise when applicable. Toe brachial indices (TBI) taken when necessary. Patient OUT-PATIENT Enaation: Ankle to Brachial Index IndYeations Absent pedal pulses, numbness in bilateral lower extremities and weakness. Pressures/Indices Right AB Left AB Brachial 136mmHg Brachial 134mmHg Ankle(PT) 108mmHg 0.79 Ankle(PT) 80mmHg Ankle(DP) 84mmHg Ankle(DP) 94mmHg 0.69 CONCLUSION Impression: Nuria Garcia RVT Moderate peripheral arterial disease bilaterally per ankle-brachial index.
--- NOTE | 2025-04-23 14:54 | VASCULAR REPORT ---
Bilateral Lower Extremity Arterial Duplex Clinical History: Bilateral lower extremity pain weakness Comparison: VASC VL CHIRAG on DOS: 04/23/25 Technique: Duplex Doppler evaluation including color Doppler and spectral/pulsed waveform analysis of the lower extremity arteries was performed. 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 : ANANYA JOHNSON, Preliminary Report The above named patient was referred for a NON-INVASIVE LOWER EXTREMITY ARTERIAL EVALUATION. The evaluation includes grayscale imaging, color flow Doppler and spectral analysis of the lower extermit y arteries. Patient OUT-PATIENT Absent pedal pulses. Bilateral lower extremity numbness and weakness. VELOCITY AND DOPPLER WAVEFORM ANALYSIS RIGHT cm/se Waveform Severity LEFT cm/se Waveform Severity c c dCFA 66.7 Multiphasic dCFA 86.5 Multiphasic Prof Fem 101.5 Multiphasic Prof Fem 78.5 Multiphasic Art. Art Fem Art 75.6 Multiphasic Fem Art 100.0 Multiphasic Prox. Prox. Fem Art 87.6 Multiphasic Fem Art 81.7 Multiphasic Mid Mid. Fem Art 45.2 Multiphasic Fem Art 51.5 Multiphasic Dist Dist. Pop Art(AK) 32.0 Multiphasic Pop Art(AK) 39.7 Multiphasic Pop Art(BK) 32.7 Multiphasic Pop Art(BK) 39.8 Multiphasic RESTAURANT GENERAL MANAGER Dist. 19.6 Multiphasic RESTAURANT GENERAL MANAGER Dist. 15.3 Monophasic Per Art Dist. 28.5 Multiphasic Per Art Dist. 39.7 Monophasic DPA 30.9 Multiphasic DPA 42.2 Monophasic IMPRESSION: No sonographic evidence of stenosis or occlusion in bilateral lower extremities. Arteries appear calc ified with plaque noted throughout both legs. Multiphasic flow throughout both legs except for left posterior tibial ar colin, peroneal artery in dorsalis pedis artery.
--- NOTE | 2025-04-23 15:35 | RADIOLOGY REPORT ---
PROCEDURE: MR MRI LUMBAR SPINE INDICATION: LOW BACK PAIN,UNSPECIFIED Exam Date: 04/23/2025 01:39 PM COMPARISON: None TECHNIQUE: MRI lumbar spine without intravenous contrast. FINDINGS: Multilevel disc degeneration. Alignment: Grade 1 retrolisthesis of L1 on L2. Grade 1 retrolisthesis of L2 on L3 . Vertebrae: Vertebral body height is well maintained without evidence of a recent compression fracture. Conus: Conus medullaris terminates at the L1 level. Following levels detailed below: T12-L1: Disc desiccation. Severe left lateral recess stenosis with left descending L1 nerve root com pression. Moderate left and severe right foraminal stenosis with potential right exiting T12 nerve ro ot compression. Facet arthrosis. L1-2: Grade 1 retrolisthesis of L1 on L2. Disc desiccation. Mild disc height loss . Disc extrusion with 3.85 mm of caudal extension. Moderate spinal canal stenosis. Mild bilateral lat eral recess stenosis. Severe bilateral foraminal stenosis with potential bilateral exiting L1 nerve r oot compression. Facet arthrosis. L2-3: Grade 1 retrolisthesis of L2 on L3. Disc desiccation and disc bulge. Modera te disc height loss. Moderate spinal canal stenosis. Severe bilateral lateral recess stenosis with bi lateral descending L3 nerve root compression. Moderate right and severe left foraminal stenosis with potential left exiting L2 nerve root compression. Facet arthrosis. L3-4: Disc desiccation. Moderate disc height loss. Disc bulge with superimposed d isc protrusion. Severe spinal canal stenosis. Severe bilateral lateral recess stenosis with bilateral descending L4 nerve root compression. Severe bilateral foraminal stenosis with potential bilateral e xiting L3 nerve root compression. Facet arthrosis. L4-5: Disc desiccation. Moderate disc height loss. Disc bulge with superimposed d isc protrusion. Severe spinal canal stenosis. Severe bilateral lateral recess stenosis with bilateral descending L5 nerve root compression. Severe bilateral foraminal stenosis with potential bilateral e xiting L4 nerve root compression. Facet arthrosis. L5-S1: Disc desiccation. No spinal canal stenosis. Mild right foraminal stenosis. Facet arthrosis. IMPRESSION: Multilevel disc degeneration. Multilevel spinal canal stenosis, most pronounced and severe at L4-L5. Multilevel lateral recess stenosis, most pronounced and severe at L4-L5 with bilateral descending L5 nerve root compression. Multilevel foraminal stenosis, most pronounced and severe at L4-L5 with potential bilateral exiting L 4 nerve root compression
== END 2025-04-23 23:59 | disposition home or self-care (01) ==
LOC: RAD 11:25
PROVIDERS: ATTEND Family Medicine
DX: M47.817 Spondylosis without myelopathy or radiculopathy, lumbosacral region (principal); I70.203 Unspecified atherosclerosis of native arteries of extremities, bilateral legs; M51.360 Other intervertebral disc degeneration, lumbar region with discogenic back pain only; M48.07 Spinal stenosis, lumbosacral region; M43.16 Spondylolisthesis, lumbar region; M48.04 Spinal stenosis, thoracic region; M53.85 Other specified dorsopathies, thoracolumbar region; I77.89 Other specified disorders of arteries and arterioles; M47.814 Spondylosis without myelopathy or radiculopathy, thoracic region; R09.89 Other specified symptoms and signs involving the circulatory and respiratory systems; R20.0 Anesthesia of skin; R53.1 Weakness
CPT/HCPCS: 72148; 93922; 93925

== ENCOUNTER 2025-06-03 08:57 | Outpatient (CLI) | payer MEDICARE, MEDICAID ==
--- NOTE | 2025-06-03 09:56 | RADIOLOGY REPORT ---
INDICATION: CHRONIC VIRAL HEPATITIS C TECHNIQUE: Multiple real-time sonographic images of the abdomen were obtained. COMPARISON: ULTRASOUND OF ABDOMEN on DOS: 06/24/21 FINDINGS: Coarsened hepatic echotexture with increased echogenicity. No focal mass lesions are seen. No intrahepatic ductal dilatation is seen. Cholelithiasis. The gallbladder wall is not thickened. A sonographic Matta's sign was not elicited by the railroad inspector. The common duct is not dilated in caliber, measuring 5 mm at the level of the hepatic artery. No pericholecystic fluid. The pancreas is not well visualized secondary to overlying bowel gas. The right kidney measures 9.4 cm, and the left kidney measures 9.8 cm. No hydronephrosis is seen. No solid renal mass. The spleen is homogenous with normal contour and measures 10.3 cm in length. No masses are identified. No ascites or free fluid is seen in Mota's pouch. Aorta is normal in caliber where seen. IMPRESSION: 1. Coarsened hepatic echotexture with increased echogenicity which can be seen with hepatic steatosis or other hepatocellular disease. 2. No discrete hepatic lesion. 3. No sonographic evidence of acute cholecystitis or cholelithiasis.
== END 2025-06-03 23:59 | disposition home or self-care (01) ==
LOC: RAD 08:57
PROVIDERS: ATTEND Preventive Medicine Public Health & General Preventive Medicine
DX: K80.20 Calculus of gallbladder without cholecystitis without obstruction (principal); B18.2 Chronic viral hepatitis C
CPT/HCPCS: 76700